=== PATIENT | female | born 2000 | race Asian ===

== ENCOUNTER 2022-03-19 11:37 | Outpatient (RCR) | payer OTHER, SELFPAY | END 2022-12-24 23:59 | disposition home or self-care (01) | PROVIDERS: Visit Provider Physician Assistant Medical | DX: M54.50 Low back pain, unspecified (principal); R26.89 Other abnormalities of gait and mobility; Z51.89 Encounter for other specified aftercare ==

== ENCOUNTER 2022-06-15 09:50 | Outpatient (CLI) | payer OTHER, SELFPAY | END 2022-06-15 09:51 | disposition home or self-care (01) | LOC: AMB 06-17 19:12 | PROVIDERS: Visit Provider Emergency Medicine Emergency Medical Services | DX: S09.90XA Unspecified injury of head, initial encounter (principal); S89.92XA Unspecified injury of left lower leg, initial encounter; S79.912A Unspecified injury of left hip, initial encounter; V09.9XXA Pedestrian injured in unspecified transport accident, initial encounter; Y92.488 Other paved roadways as the place of occurrence of the external cause | CPT/HCPCS: A0425; A0427 ==